=== PATIENT | male | born 1930 | race Caucasian/White ===

== ENCOUNTER 2016-12-03 16:14 | Inpatient (IN) | payer OTHER ==
[~2016-12-03] VITALS: Ht 177.8 cm; Wt 63.5 kg
[~2016-12-03 16:14] MED LIST: ALLO300T PO; DONE5TAB30 PO; DOXA4TAB3 PO; LISI-170 PO; OMEP-110 PO
[2016-12-03] MEDS ORDERED: SODIUM CHLORIDE FLUSH 10ML SYR IVF ONE (16:30)
[2016-12-03 17:00] LABS: DAU SCREEN DISCLAIMER
[2016-12-03 17:02] LABS: BLOOD UREA NITROGEN 14 mg/dL (7-18)
[2016-12-03 17:08] LABS: ACETAMINOPHEN < 2 mcg/mL (10-30); ASPARTATE AMINO TRANSFERASE 33 U/L (15-37); IS PT STATUS REG ER OR PRE ER? YES
[2016-12-03] MEDS ORDERED: ACET325T14 PO (17:12)
[2016-12-03] MEDS ORDERED: LORazepam 2 MG/ML, 1ML IVPush ONE (17:15)
[2016-12-03 17:16] LABS: PATH.CAST-FLAG NOT PRESENT; SPERM-FLAG NOT PRESENT; SRC-FLAG NOT PRESENT; XTAL-FLAG NOT PRESENT; YLC-FLAG NOT PRESENT
[2016-12-03] MEDS ORDERED: LORazepam 2 MG/ML, 1ML ONE (17:26)
[2016-12-03] MEDS ORDERED: SODIUM CHLORIDE 0.9% 1,000 ML IV ONE ×2 (17:45→17:54)
[2016-12-03] MEDS ORDERED: OMEG1CAP6 PO (18:42)
[2016-12-03] MEDS ORDERED: DOCU240C53 PO (18:42)
[2016-12-03] MEDS ORDERED: CYAN2000 PO (18:42)
[2016-12-03] MEDS ORDERED: DOCUSATE 100 MG CAPSULE PO PRN (20:00)
[2016-12-03] MEDS ORDERED: NICOTINE 14MG/24 HR PATCH.TD24 TD SCH (20:00)
[2016-12-03] MEDS ORDERED: ONDANSETRON 2MG/ML, 2ML IVP PRN (20:00)
[2016-12-03] MEDS ORDERED: POLYETHYLENE GLYCOL 17 GM PACKET PO PRN (20:00)
[2016-12-03] MEDS ORDERED: BISACODYL 10 MG SUPP PR PRN (20:00)
[2016-12-03] MEDS ORDERED: ACETAMINOPHEN 325 MG TABLET PO PRN (20:00)
[2016-12-03] MEDS ORDERED: CALCIUM CHLORIDE 13.6 MEQ in SODIUM CHLORIDE 0.9% 100 ML IV ONE (20:30)
[2016-12-03] MEDS ORDERED: LABETALOL 20 MG/4 ML ONE (20:31)
[2016-12-03] MEDS: LABETALOL 5MG/ML, 20ML IV PRN (20:32)
[2016-12-03] MEDS ORDERED: HEPARIN 5,000 UNITS/ML, 1ML ONE (20:37)
[2016-12-03] MEDS ORDERED: NICOTINE 14MG/24 HR PATCH.TD24 ONE (20:37)
[2016-12-03] MEDS: SODIUM CHLORIDE 0.9% 1,000 ML IV SCH (20:39)
[2016-12-03] MEDS: HEPARIN 5,000 UNITS/ML, 1ML SQ SCH (20:39)
[2016-12-03] MEDS ORDERED: DOXAZOSIN 2MG TABLET PO SCH (21:00)
[2016-12-03 22:32] VITALS: BP 210/82
[2016-12-03 23:40] LABS: BLOOD UREA NITROGEN 12 mg/dL (7-18)
[2016-12-04 00:10] VITALS: BP 214/84
[2016-12-04] MEDS: LABETALOL 5MG/ML, 20ML IV PRN (00:14)
[2016-12-04 01:04] VITALS: BP 197/80
[2016-12-04 02:03] VITALS: BP 168/71
[2016-12-04 05:39] LABS: ASPARTATE AMINO TRANSFERASE 40 U/L (15-37); BLOOD UREA NITROGEN 11 mg/dL (7-18)
[2016-12-04] MEDS: HEPARIN 5,000 UNITS/ML, 1ML SQ SCH ×2 (05:44→13:20)
[2016-12-04] MEDS: OMEGA-3/FISH OIL CAPSULE PO SCH ×3 (08:38→16:51)
[2016-12-04 08:50] VITALS: BP 145/56
[2016-12-04] MEDS ORDERED: ALLOPURINOL 300 MG TABLET PO SCH (09:00)
[2016-12-04] MEDS ORDERED: CYANOCOBALAMIN 1,000 MCG TABLET PO SCH (09:00)
[2016-12-04] MEDS ORDERED: DONEPEZIL 5 MG TABLET PO SCH (09:00)
[2016-12-04] MEDS ORDERED: OMEPRAZOLE 20 MG CAPSULE.DR PO SCH (09:00)
[2016-12-04] MEDS ORDERED: LISINOPRIL 20 MG TABLET PO SCH (09:00)
[2016-12-04] MEDS ORDERED: THIAMINE 100MG TABLET PO SCH (10:30)
[2016-12-04] MEDS ORDERED: FOLIC ACID 1 MG TABLET PO SCH (10:51)
[2016-12-04] MEDS ORDERED: MULTIVITAMIN 1 TABLET PO SCH (10:51)
[2016-12-04 12:40] VITALS: BP 121/58
[2016-12-04] MEDS: SODIUM CHLORIDE 0.9% 1,000 ML IV SCH (13:00)
== END 2016-12-04 18:43 | disposition left against medical advice (07) | DRG 91 ==
LOC: ED 18:44 → EDIP 20:14 → 4EST 21:50 → 4WST 12-04 05:06
PROVIDERS: ADMIT Internal Medicine
PROC: 0T9B70Z Drainage of Bladder with Drainage Device, Via Natural or Artificial Opening (ICD-10-PCS; principal; 2016-12-03)
DX: G92 Toxic encephalopathy (principal); I63.9 Cerebral infarction, unspecified; E87.1 Hypo-osmolality and hyponatremia; F10.231 Alcohol dependence with withdrawal delirium; E87.2 Acidosis; R56.9 Unspecified convulsions; E83.51 Hypocalcemia; I12.9 Hypertensive chronic kidney disease with stage 1 through stage 4 chronic kidney disease, or unspecified chronic kidney disease; N18.3 Chronic kidney disease, stage 3 (moderate); D53.9 Nutritional anemia, unspecified; F31.9 Bipolar disorder, unspecified; N40.0 Benign prostatic hyperplasia without lower urinary tract symptoms; M10.9 Gout, unspecified; Z53.21 Procedure and treatment not carried out due to patient leaving prior to being seen by health care provider; K21.9 Gastro-esophageal reflux disease without esophagitis; F17.210 Nicotine dependence, cigarettes, uncomplicated; F03.90 Unspecified dementia, unspecified severity, without behavioral disturbance, psychotic disturbance, mood disturbance, and anxiety; R00.1 Bradycardia, unspecified
CPT/HCPCS: 36415; 70450; 71010; 80048; 80053; 80307; 80329; 81001; 82140; 83735; 84295; 84439; 84443; 84484; 85025; 85610; 85730; 93005; 96361; 96365; 96375; J1644; G0480; J2060; J7030